=== PATIENT | male | born 1990 | race Two or more races ===

== ENCOUNTER 2019-05-07 20:17 | Emergency (ER) | payer SELFPAY ==
[~2019-05-07] VITALS: Ht 160 cm; Wt 70.1 kg
[~2019-05-07 20:17] MED LIST: NAPR-985 PO; SULF1TAB31 PO
[2019-05-07 20:34] VITALS: BP 138/76; PULSE 94; RESP 16; Ht 160 cm; Wt 70.1 kg
[2019-05-07] MEDS ORDERED: ACETAMINOPHEN 500 MG TAB PO STA (21:20)
[2019-05-07] MEDS ORDERED: TRIMETHOPRIM/SULFAMETHOX (DS) TAB PO ONE (21:30)
[2019-05-07] MEDS ORDERED: IBUPROFEN 600 MG TAB PO ONE (22:30)
== END 2019-05-07 22:29 | disposition home or self-care (01) ==
LOC: FTE 20:17
DX: L03.114 Cellulitis of left upper limb (principal); M70.22 Olecranon bursitis, left elbow; Y93.9 Activity, unspecified
CPT/HCPCS: 99283